=== PATIENT | male | born 1975 | race Caucasian/White ===

== ENCOUNTER 2016-12-10 12:22 | Emergency (ER) | payer BC ==
--- NOTE | 2016-12-10 13:37 | UC ---
Cardiac HPI - HPI Summary HPI Summary: The patient comes in today for: 1. Left sided chest pain: Onset: "started a couple months ago." Palliative/provocative: Rubbing area makes it feel better. Quality: Sharp, and shooting. Region: Left chest. Severity: 7/10 Time: Comes and goes. Lasts a few seconds. Associated symptoms: Rash: This showed up two weeks ago. With the onset of the rash, the pain had the same character, but was more severe. Before the rash the pain was 2/10 but after the rash was 7/10 Fever: None Shortness of breath: He will notice that his ability to exert himself is reduced. He was climbing up a bank along a river (30-40 foot bank) yesterday, and at the top he felt more short of breath than what he would expect. Nausea: None now. Patient states that his sent him in to have a heart attack ruled out. I told him that we are not able to do that here. * - History of Current Complaint Chief Complaint: UCRespiratory Stated Complaint: CHEST PAIN Time Seen by Provider: 12/10/16 13:26 Hx Obtained From: Patient - Allergy/Home Medications Allergies/Adverse Reactions: Allergies Allergy/AdvReac Type Severity Reaction Status Date / Time Penicillins Allergy Intermediate Rash Verified 12/10/16 12:43 PMH/Surg Hx/FS Hx/Imm Hx Previously Healthy: No - Gout Endocrine History Of: Denies: Diabetes, Thyroid Disease, Hyperthyroidism, Hypothyroidism, Dyslipidemia Cardiovascular History Of: Denies: Cardiac Disorders, Hypertension, Pacemaker/ICD, Myocardial Infarction , Congestive Heart Failure, Atrial Fibrillation, Deep Vein Thrombosis, Bleeding Disorders Respiratory History Of: Denies: COPD, Asthma, Bronchitis, Pneumonia, Pulmonary Embolism GI/ History Of: Denies: Gastroesophageal Reflux, Ulcer, Gastrointestinal Bleed, Gall Bladder Disease, Kidney Stones, Diverticulitis, Renal Disease, Urosepsis Neurological History Of: Denies: TIA, CVA, Dementia, Seizures, Migraine Psychological History Of: Denies: Anxiety, Depression, Bipolar Disorder, Schizophrenia, Post Traumatic Stress Disorder Cancer History Of: Denies: Lung Cancer, Colorectal Cancer, Breast Cancer, Prostate Cancer, Cervical Cancer Other History Of: Negative For: HIV, Hepatitis B, Hepatitis C, Anticoagulant Therapy - Surgical History Surgical History: Yes Surgery Procedure, Year, and Place: right kn 2007,. RIGHT knee 02/2014 - Family History Known Family History: Negative: Cardiac Disease, Hypertension, Diabetes - Social History Occupation: Employed Full-time Alcohol Use: Occasionally Substance Use Type: None Smoking Status (MU): Never Smoked Tobacco Amount Used/How Often: 4 cans a week - Immunization History Most Recent Influenza Vaccination: fall 2014 Review of Systems Constitutional: Negative Skin: Rash Eyes: Negative ENT: Negative Respiratory: Negative Cardiovascular: Negative Gastrointestinal: Negative Genitourinary: Negative All Other Systems Reviewed And Are Negative: Yes Physical Exam Triage Information Reviewed: Yes Appearance: Well-Appearing, No Pain Distress, Well-Nourished Vital Signs: Initial Vital Signs Temp 98.5 F 12/10/16 12:30 Vital Signs Reviewed: Yes Eyes: Positive: Conjunctiva Clear. Negative: Discharge ENT: Positive: Hearing grossly normal. Negative: Pharyngeal erythema, Nasal congestion, Nasal drainage, TM bulging, TM dull, TM red, Tonsillar swelling, Tonsillar exudate Dental: Negative: Gross Decay/Caries @, Dental Fracture @ Neck: Positive: Supple, Nontender, No Lymphadenopathy. Negative: Nuchal Rigidity Respiratory: Positive: Lungs clear, No respiratory distress, No accessory muscle use. Negative: Crackles, Wheezing Cardiovascular: Positive: RRR, No Murmur Abdomen Description: Positive: Nontender, No Organomegaly, Soft Musculoskeletal: Positive: Strength Intact, ROM Intact, No Edema Neurological: Positive: Alert, Muscle Tone Normal Psychological: Positive: Age Appropriate Behavior, Consolable Skin: Positive: rashes - The patient had a typical herpes zoster rash of Left T4 front and back.. Negative: breakdown Diagnostics - Laboratory Diagnostic Studies Completed/Ordered: EKG: Rate: 70. Rhythm: sinus. Ectopy: None. Acute changes: None. - Assessment/Plan Course Of Treatment: Patient was told that his history and physical exam suggest chest pain from post herpetic neuralgia related to a shingles outbreak and offered pain medications. He declined. However, he stated that he wanted blood testing to rule out a heart attack even though I told him that his clinical picture and EKG did not suggest it. I told him that if he wanted to do that, he would have to go to the ER which he declined. He said that he would contact his primary care provider about this. - Clinical Impression Provider Diagnoses: post herpetic neuralgia, shingles T4, let dermatome. Discharge - Discharge Plan Condition: Stable Disposition: HOME Patient Education Materials: Miguelito (ED) Referrals: Pee Burks MD [Primary Care Provider] - 1 Week (Please see your primary care provider in a week to see how well you are doing. If you get worse, please be seen sooner in the ER or through us.)
== END 2016-12-10 14:15 | disposition home or self-care (01) ==
LOC: UCEAST 12:22
DX: B02.29 Other postherpetic nervous system involvement (principal); B02.9 Zoster without complications; Z88.0 Allergy status to penicillin
CPT/HCPCS: 93005; 99211; G0463

== ENCOUNTER 2016-12-11 22:24 | Emergency (ER) | payer BC ==
[2016-12-11] MEDS ORDERED: Aspirin Low Dose CHEW TAB* 81 MG PO ONE (23:51)
[2016-12-12 00:55] LABS: Hematocrit 45 % (42-52); Hemoglobin 15.3 g/dl (14.0-18.0); Mean Corpuscular HGB Conc 35 g/dl (31-36); Mean Corpuscular Hemoglobin 28 pg (27-31); Mean Corpuscular Volume 82 fL (80-94); Mean Platelet Volume 9 um3 (7.4-10.4); Red Cell Distribution Width 14 % (10.5-15); White Blood Count 8.1 10^3/ul (3.5-10.8)
[2016-12-12 01:04] LABS: Albumin 4.3 g/dL (3.2-5.2); BUN/Creatinine Ratio 18.6 (8-20); Calcium 9.5 mg/dL (8.6-10.3); EGFR African American 110.8 (>60); EGFR Non-African American 86.2 (>60); Globulin 2.8 g/dL (2-4); Potassium 3.8 mmol/L (3.5-5.0); Total Bilirubin 0.5 mg/dL (0.2-1.0); Total Protein 7.1 g/dL (6.4-8.9)
[2016-12-12 02:16] VITALS: BP 138/82
[2016-12-12] MEDS ORDERED: Ibuprofen TAB* 600 MG PO ONE (02:16)
--- NOTE | 2016-12-12 02:34 | ED ---
Libia Carrington Salem, scribed for Leonard Patel on 12/11/16 at 2353 . HPI Chest Pain - HPI Summary HPI Summary: Patient is a 41 y/o male who presents to the ED with intermittent CP localized on the left side of his chest for 5 to 6 days. Intermittent pain lasts about 15 seconds. Pt reports SOB with exertion, but denies coughing. FHx: CAD on father s side. - History of Current Complaint Chief Complaint: EDGeneral Time Seen by Provider: 12/11/16 23:22 Hx Obtained From: Patient Onset/Duration: Started Days Ago Timing: Intermittent Initial Severity: Moderate Current Severity: Moderate Pain Intensity: 2 Pain Scale Used: 0-10 Numeric Chest Pain Location: Left Anterior Aggravating Factor(s): Nothing Alleviating Factor(s): Nothing Associated Signs and Symptoms: Positive: Shortness of Breath. Negative: Cough - Allergy/Home Medications Allergies/Adverse Reactions: Allergies Allergy/AdvReac Type Severity Reaction Status Date / Time Penicillins Allergy Intermediate Rash Verified 12/10/16 12:43 PMH/Surg Hx/FS Hx/Imm Hx Endocrine/Hematology History: Denies: Hx Anticoagulant Therapy, Hx Diabetes, Hx Thyroid Disease Cardiovascular History: Denies: Hx Congestive Heart Failure, Hx Deep Vein Thrombosis, Hx Hypertension , Hx Myocardial Infarction, Hx Pacemaker/ICD Respiratory History: Denies: Hx Asthma, Hx Chronic Obstructive Pulmonary Disease (COPD), Hx Lung Cancer, Hx Pneumonia, Hx Pulmonary Embolism GI History: Denies: Hx Gall Bladder Disease, Hx Gastrointestinal Bleed, Hx Ulcer, Hx Urosepsis History: Denies: Hx Kidney Stones, Hx Renal Disease Sensory History: Denies: Hx Hearing Aid Neurological History: Denies: Hx Dementia, Hx Migraine, Hx Seizures, Hx Transient Ischemic Attacks (TIA) Psychiatric History: Denies: Hx Anxiety, Hx Depression, Hx Panic Disorder, Hx Schizophrenia, Hx Bipolar Disorder - Surgical History Surgery Procedure, Year, and Place: right kn 2007,. RIGHT knee 02/2014 Infectious Disease History: No Infectious Disease History: Denies: Hx Clostridium Difficile, Hx Hepatitis, Hx Human Immunodeficiency Virus (HIV), Hx of Known/Suspected MRSA, Hx Shingles, Hx Tuberculosis, Hx Known/ Suspected VRE, Hx Known/Suspected VRSA, History Other Infectious Disease, Traveled Outside the [place] in Last 30 Days - Family History Known Family History: Negative: Cardiac Disease, Hypertension, Diabetes - Social History Alcohol Use: Occasionally Substance Use Type: Reports: None Hx Tobacco Use: No Smoking Status (MU): Never Smoked Tobacco Do You Chew or Dip Tobacco: Yes - Occasionally. Amount Used/How Often: 4 cans a week Review of Systems Negative: Fever Positive: Chest Pain - Left side. Positive: Shortness Of Breath - With exertion.. Negative: Cough All Other Systems Reviewed And Are Negative: Yes Physical Exam Triage Information Reviewed: Yes Vital Signs On Initial Exam: Initial Vitals Temp Pulse Resp BP Pulse Ox 98.6 F 66 16 134/63 96 12/11/16 22:25 12/11/16 22:25 12/11/16 22:25 12/11/16 22:25 12/11/16 22:25 Vital Signs Reviewed: Yes Appearance: Positive: Well-Appearing, No Pain Distress Skin: Positive: Warm, Skin Color Reflects Adequate Perfusion, Dry, Other - Rash over left chest. Megalopapilla. Head/Face: Positive: Normal Head/Face Inspection Eyes: Positive: EOMI, TANISHA Neck: Positive: Supple, Nontender Respiratory/Lung Sounds: Positive: Clear to Auscultation, Breath Sounds Present Cardiovascular: Positive: RRR, Pulses are Symmetrical in both Upper and Lower Extremities Abdomen Description: Positive: Nontender, Soft Bowel Sounds: Positive: Present Musculoskeletal: Positive: Normal, Strength/ROM Intact Neurological: Positive: Normal, Sensory/Motor Intact, Alert, Oriented to Person Place, Time Diagnostics - Vital Signs Vital Signs Temp Pulse Resp BP Pulse Ox 12/11/16 22:25 98.6 F 66 16 134/63 96 - Laboratory Result Diagrams: 12/12/16 00:30 12/12/16 00:30 Lab Statement: Any lab studies that have been ordered have been reviewed, and results considered in the medical decision making process. - Radiology CXR Radiology Interpretation Completed By: ED Physician - Negative. - EKG 2225 EKG Interpretation: Sinus rhythm at 66 bpm. No acute chnages. Re-Evaluation - Re-Evaluation First Eval Re-Evaluation Time: 01:58 Comment: Informed pt of plans. He is agreeable. Chest Pain Course/Dx - Course Assessment/Plan: Unlikely ACS. - Diagnoses Provider Diagnoses: Musculoskeletal chest pain, Shingles Discharge - Discharge Plan Condition: Stable Disposition: HOME Prescriptions: Ibuprofen TAB* [Motrin TAB* 600 MG] 600 mg PO Q8H PRN #20 tab PRN Reason: Pain Patient Education Materials: Ibuprofen (By mouth), Chest Pain (ED), Shingles ( ED) Referrals: Pee Burks MD [Primary Care Provider] - Additional Instructions: Follow up with PCP in 3 days. The documentation as recorded by the Libia vergara Salem accurately reflects the service I personally performed and the decisions made by Jorge laird Emmanuel.
--- NOTE | 2016-12-12 07:37 | RAD ---
INDICATION: Chest pain COMPARISON: July 04, 2003 TECHNIQUE: PA and lateral dual-energy views were obtained. FINDINGS: Bones/Soft Tissues: There are no acute bony findings. Cardiomediastinal: The cardiomediastinal silhouette is normal. Lungs: There are no infiltrates. Pleura: There are no pleural effusions. Other: None IMPRESSION: NORMAL CHEST.
== END 2016-12-12 02:35 | disposition home or self-care (01) ==
LOC: ED 22:24
DX: R07.9 Chest pain, unspecified (principal); B02.9 Zoster without complications; R06.02 Shortness of breath
CPT/HCPCS: 36415; 71020; 80053; 83880; 84484; 85025; 93005; 99283; A9270-GY

== ENCOUNTER 2017-05-11 15:57 | Emergency (ER) | payer BC ==
[2017-05-11 17:10] VITALS: BP 121/68
--- NOTE | 2017-05-11 18:47 | UC ---
Elbow Pain - HPI Summary HPI Summary: 41 y/o male presents to the urgent care c/o LF elbow swollen and warm to touch since 05/02/2017. He was out of town and couldn't go to see her PCP. Pt reports he has HX of gout. and had a similar flare up on 01/2017. He was Rx indomethacin and symptoms resolved. Pt denies fever, pain, SOB, chest pain, N/V/ D, insect bite or trauma to the elbow. - History of Current Complaint Hx Obtained From: Patient Onset/Duration: Weeks Severity Initially: Mild Severity Currently: Moderate Pain Intensity: 0 Pain Scale Used: 0-10 Numeric Aggravating Factor(s): Movement Alleviating Factor(s): Rest, Ice Associated Signs And Symptoms: Positive: Swelling <Adriana Acosta - Last Filed: 05/13/17 13:38> <Jolie Bueno - Last Filed: 05/13/17 14:37> - History of Current Complaint Chief Complaint: UCUpperExtremity Stated Complaint: ELBOW PAIN Time Seen by Provider: 05/11/17 18:33 - Allergies/Home Medications Allergies/Adverse Reactions: Allergies Allergy/AdvReac Type Severity Reaction Status Date / Time Penicillins Allergy Intermediate Rash Verified 05/11/17 17:10 PMH/Surg Hx/FS Hx/Imm Hx Previously Healthy: Yes Other Endocrine History: GOUT Other History Of: Negative For: HIV, Hepatitis B, Hepatitis C, Anticoagulant Therapy - Surgical History Surgical History: Yes Surgery Procedure, Year, and Place: right kn 2007,. RIGHT knee 02/2014 - Family History Known Family History: Positive: None Negative: Cardiac Disease, Hypertension, Diabetes - Social History Occupation: Employed Full-time Lives: With Family Alcohol Use: Occasionally Substance Use Type: None Smoking Status (MU): Never Smoked Tobacco Amount Used/How Often: 4 cans a week - Immunization History Most Recent Influenza Vaccination: fall 2014 <Adriana Acosta - Last Filed: 05/13/17 13:38> Review of Systems Constitutional: Negative Skin: Negative Eyes: Negative ENT: Negative Respiratory: Negative Cardiovascular: Negative Gastrointestinal: Negative Genitourinary: Negative Motor: Negative Neurovascular: Negative Musculoskeletal: Other: - Left elbow swollen and warm to touch Neurological: Negative Psychological: Negative All Other Systems Reviewed And Are Negative: Yes <Conor Acostaha - Last Filed: 05/13/17 13:38> Physical Exam Triage Information Reviewed: Yes Appearance: Well-Appearing, No Pain Distress, Well-Nourished Vital Signs: Initial Vital Signs Temp 97.6 F 05/11/17 17:07 Pulse 60 05/11/17 17:07 Resp 16 05/11/17 17:07 BP 121/68 05/11/17 17:07 Pulse Ox 99 05/11/17 17:07 Vital Signs Reviewed: Yes Eye Exam: Normal Eyes: Positive: Conjunctiva Clear - PERRLA, EOMI, fundi groslly normal ENT Exam: Normal ENT: Positive: Normal ENT inspection, Hearing grossly normal, Pharynx normal, TMs normal Dental Exam: Normal Neck exam: Normal Respiratory Exam: Normal Respiratory: Positive: Chest non-tender, Lungs clear, Normal breath sounds Cardiovascular Exam: Normal Cardiovascular: Positive: RRR, No Murmur, Pulses Normal, Brisk Capillary Refill Abdominal Exam: Normal Abdomen Description: Positive: Nontender, No Organomegaly, Soft. Negative: CVA Tenderness (R), CVA Tenderness (L) Bowel Sounds: Positive: Present Musculoskeletal Exam: Normal Musculoskeletal: Positive: Strength Intact - Left elbow with moderate edema, warm to palpation and non tender, no erythema observed. FROM of the LF elbow. No signs trauma. Positive sensation, capillary refill, reflexes and pulses are WNL., ROM Intact, Other: <CarrascoGerryMolinaAdriana - Last Filed: 05/13/17 13:38> Vital Signs: Initial Vital Signs Temp 97.6 F 05/11/17 17:07 Pulse 60 05/11/17 17:07 Resp 16 05/11/17 17:07 BP 121/68 05/11/17 17:07 Pulse Ox 99 05/11/17 17:07 <Jolie Bueno - Last Filed: 05/13/17 14:37> Elbow Pain Course/Dx - Course Course Of Treatment: 41 y/o male presents to the urgent care c/o LF elbow swollen and warm to touch since 05/02/2017. He was out of town and couldn't go to see her PCP. Pt reports he has HX of gout. and had a similar flare up on 2016. He was Rx indomethacin and symptoms resolved. Pt denies fever, pain, SOB , chest pain, N/V/D, insect bite or trauma to the elbow.Hx obtained. PE abnormal findings: Left elbow with moderate edema, warm to palpation and non tender, no erythema observed. FROM of the LF elbow. No signs trauma. Positive sensation, capillary refill, reflexes and pulses are WNL. Pt Rx Indometacin Po and advised to decrease ETOH comsumption, seafoot and meats in his diet and f/u with his PCP in 2-3 days for further evaluation and treatment. Pt understood and agreed and left the clinic ambulating. - Differential Dx/Diagnosis Differential Diagnosis/HQI/PQRI: Bursitis, Cellulitis, Contusion, Infection, Sprain, Strain, Tendonitis, Other - Gout, RA Provider Diagnoses: 1- Acute exacerbation of Gout <Adriana Acosta - Last Filed: 05/13/17 13:38> Discharge <Adriana Acosta - Last Filed: 05/13/17 13:38> <Jolie Bueno - Last Filed: 05/13/17 14:37> - Discharge Plan Condition: Stable Disposition: HOME Prescriptions: Indomethacin CAP* [Indocin CAP*] 50 mg PO TID PRN #21 cap PRN Reason: Pain Patient Education Materials: Gout (ED) Referrals: Pee Burks MD [Primary Care Provider] - 2 Days Additional Instructions: Please take medication as directed for flare up of your gout. if pain and fever develops, please go immediate to the ER for further treatment. Otherwise f /u with your PCP in 2-3 days for further management in your gout. E Attestation Statement User Type: Provider - I was available for consult. This patient was seen by the LEONIE. The patient was not presented to, seen by, or examined by me. -Christal <Jolie Bueno - Last Filed: 05/13/17 14:37>
== END 2017-05-11 19:01 | disposition home or self-care (01) ==
LOC: UCEAST 15:57
DX: M10.022 Idiopathic gout, left elbow (principal); Z88.0 Allergy status to penicillin; F17.220 Nicotine dependence, chewing tobacco, uncomplicated
CPT/HCPCS: 99211; G0463

== ENCOUNTER 2017-06-07 09:11 | Emergency (ER) | payer BC ==
[2017-06-07 09:37] VITALS: BP 153/72
--- NOTE | 2017-06-07 09:42 | UC ---
Lower Extremity/Ankle HPI - HPI Summary HPI Summary: 41 YEAR OLD MALE PRESENTS WITH COMPLAINS OF LEFT FOOT PAIN AFTER JUMPING OUT OF A TREE. - History of Current Complaint Chief Complaint: UCLowerExtremity Stated Complaint: FOOT INJURY Time Seen by Provider: 06/07/17 09:42 Hx Obtained From: Patient Onset/Duration: Sudden Onset, Lasting Hours Severity Currently: Moderate Pain Scale Used: 0-10 Numeric - 8 Aggravating Factor(s): Standing, Ambulation Alleviating Factor(s): Rest, Elevation - Allergies/Home Medications Allergies/Adverse Reactions: Allergies Allergy/AdvReac Type Severity Reaction Status Date / Time Penicillins Allergy Intermediate Rash Verified 05/11/17 17:10 PMH/Surg Hx/FS Hx/Imm Hx Previously Healthy: Yes Other History Of: Negative For: HIV, Hepatitis B, Hepatitis C, Anticoagulant Therapy - Surgical History Surgical History: Yes Surgery Procedure, Year, and Place: right kn 2007,. RIGHT knee 02/2014 - Family History Known Family History: Positive: None Negative: Cardiac Disease, Hypertension, Diabetes - Social History Alcohol Use: Occasionally Substance Use Type: None Smoking Status (MU): Never Smoked Tobacco Type: Smokeless Tobacco Amount Used/How Often: 4 cans a week - Immunization History Most Recent Influenza Vaccination: fall 2014 Review of Systems Constitutional: Negative Skin: Negative Eyes: Negative ENT: Negative Respiratory: Negative Cardiovascular: Negative Gastrointestinal: Negative Genitourinary: Negative Motor: Negative Neurovascular: Negative Musculoskeletal: Other: - LEFT FOOT PAIN Neurological: Negative Psychological: Negative All Other Systems Reviewed And Are Negative: Yes Physical Exam Triage Information Reviewed: Yes Vital Signs: Initial Vital Signs Temp 36.8 C 06/07/17 09:33 Pulse 69 06/07/17 09:33 Resp 18 06/07/17 09:33 BP 153/72 06/07/17 09:33 Pulse Ox 98 06/07/17 09:33 Eye Exam: Normal ENT Exam: Normal Dental Exam: Normal Neck exam: Normal Neck: Positive: 1 Respiratory Exam: Normal Cardiovascular Exam: Normal Abdominal Exam: Normal Musculoskeletal: Positive: Other: - LEFT FOOT PAIN Neurological Exam: Normal Psychological Exam: Normal Skin Exam: Normal Lower Extremity Course/Dx - Differential Dx/Diagnosis Provider Diagnoses: LEFT FOOT PAIN Discharge - Discharge Plan Condition: Good Disposition: HOME Prescriptions: Methylprednisolone [Medrol Dosepak 4 MG*] 4 mg PO .SEE GUS INSTRUCTION #21 tab Patient Education Materials: Foot Contusion (ED), Foot Sprain (ED) Referrals: Pee Burks MD [Primary Care Provider] -
--- NOTE | 2017-06-07 10:18 | RAD ---
HISTORY: Fall, foot pain COMPARISONS: None VIEWS: 3, Frontal, lateral, and oblique views of the left foot FINDINGS: BONE DENSITY: Normal. BONES: There is an osteochondral defect along the articular surface of the head of the second metatarsal. JOINTS: There is mild osteoarthritis of the midfoot and first MTP joint. ALIGNMENT: There is no dislocation. SOFT TISSUES: Unremarkable. OTHER FINDINGS: None. IMPRESSION: 1. 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 2. MILD OSTEOARTHRITIS. 3. NO ACUTE OSSEOUS INJURY. IF SYMPTOMS PERSIST, RECOMMEND REPEAT IMAGING
--- NOTE | 2017-06-07 10:19 | RAD ---
HISTORY: Dorsal foot pain, trauma COMPARISONS: None VIEWS: 3, Frontal, lateral, and oblique views of the left ankle FINDINGS: BONE DENSITY: Normal. BONES: There is no displaced fracture. JOINTS: There is mild osteoarthritis of the midfoot ALIGNMENT: There is no dislocation. SOFT TISSUES: Unremarkable. OTHER FINDINGS: None. IMPRESSION: NO ACUTE OSSEOUS INJURY. IF SYMPTOMS PERSIST, RECOMMEND REPEAT IMAGING.
== END 2017-06-07 10:32 | disposition home or self-care (01) ==
LOC: UCEAST 09:11
DX: M79.672 Pain in left foot (principal); Z88.0 Allergy status to penicillin
CPT/HCPCS: 99211; G0463

== ENCOUNTER 2018-08-13 09:25 | Emergency (ER) | payer BC ==
--- NOTE | 2018-08-13 09:29 | UC ---
Back Pain HPI - HPI Summary HPI Summary: 43 yo male presents with left sided lower back pain. He tells me that last night he was at a [employer] with a friend and they were playfully wrestling when pt felt a pull in his lower back. This morning he woke up and his back was stiff, tight, and painful to bend/twist. He has not taken anything for the discomfort. Denies radiation of pain, numbness, tingling, saddle anesthesia, or loss of bowel/bladder control. - History of Current Complaint Stated Complaint: BACK PAIN Time Seen by Provider: 08/13/18 09:28 Hx Obtained From: Patient Timing: Constant Severity Initially: Severe Severity Currently: Severe Pain Intensity: 10 Pain Scale Used: 0-10 Numeric - Allergies/Home Medications Allergies/Adverse Reactions: Allergies Allergy/AdvReac Type Severity Reaction Status Date / Time Penicillins Allergy Rash Verified 08/13/18 09:39 PMH/Surg Hx/FS Hx/Imm Hx - Additional Past Medical History Additional PMH: Gout Other History Of: Negative For: HIV, Hepatitis B, Hepatitis C, Anticoagulant Therapy - Surgical History Surgical History: Yes Surgery Procedure, Year, and Place: right kn 2007,. RIGHT knee 02/2014 - Family History Known Family History: Positive: None Negative: Cardiac Disease, Hypertension, Diabetes - Social History Occupation: Employed Full-time Lives: With Family Alcohol Use: Occasionally Substance Use Type: None Smoking Status (MU): Never Smoked Tobacco Type: Smokeless Tobacco Amount Used/How Often: 4 cans a week - Immunization History Most Recent Influenza Vaccination: fall 2014 Review of Systems Constitutional: Negative Skin: Negative Respiratory: Negative Cardiovascular: Negative Gastrointestinal: Negative Genitourinary: Negative Neurovascular: Negative Musculoskeletal: Other: - LBP Neurological: Negative Psychological: Negative All Other Systems Reviewed And Are Negative: Yes Physical Exam - Summary Physical Exam Summary: GENERAL: NAD. WDWN. No pain distress. SKIN: No rashes, sores, lesions, or open wounds. NECK: Supple. FROM. Nontender. No lymphadenopathy. CHEST: CTAB. No r/r/w. No accessory muscle use. Breathing comfortably and in no distress. CV: RRR. Without m/r/g. Pulses intact. Cap refill <2seconds MSK: TTP over left lumbar paraspinal muscles. Pain with flexion and extension of spine. Positive SLR on left for low back pain without radiation. Strength 5/ 5 B/L LEs including dorsiflexion and plantar flexion. FROM B/L LEs. No edema. NEURO: Alert. Sensations intact B/L LEs L3-S1. PSYCH: Age appropriate behavior. Triage Information Reviewed: Yes Vital Signs: Vital Signs: Temp Pulse Resp BP Pulse Ox 97.5 F 79 14 146/81 97 08/13/18 09:35 08/13/18 09:35 08/13/18 09:35 08/13/18 09:35 08/13/18 09:35 Vital Signs Reviewed: Yes Back Pain Course/Dx - Course Course Of Treatment: Suspect muscle strain/spasm. In the clinic pt was given Toradol 60mg IM. Will rx for Naproxen and flexeril and have him f/u if his pain does not improve or if he develops new symptoms. - Differential Dx/Diagnosis Provider Diagnoses: Low back spasm Discharge - Sign-Out/Discharge Documenting (check all that apply): Patient Departure All imaging exams completed and their final reports reviewed: No Studies - Discharge Plan Condition: Stable Disposition: HOME Prescriptions: Cyclobenzaprine TAB* [Flexeril 10 MG TAB*] 10 mg PO BID PRN #14 tab PRN Reason: Pain Naproxen [Naproxen 500 mg tab] 500 mg PO BID PRN #30 tablet PRN Reason: Pain Patient Education Materials: Muscle Spasm (ED), Lower Back Exercises (ED) Referrals: Pee Burks MD [Primary Care Provider] - Additional Instructions: If you develop a fever, shortness of breath, chest pain, new or worsening symptoms - please call your PCP or go to the ED. Your blood pressure was high at todays visit. Please see your primary provider within 4 weeks for recheck and re-evaluation. 1) Do not take ibuprofen/advil/aleve in addition to the Naproxen as these medications are similar and may interact 2) Rest and apply heat your to lower back to help relax the muscle - Billing Disposition and Condition Condition: STABLE Disposition: Home
[2018-08-13 09:39] VITALS: BP 146/81
[2018-08-13] MEDS ORDERED: Ketorolac INJ* 60 MG/2 ML VIAL IM ONE (09:46)
== END 2018-08-13 10:05 | disposition home or self-care (01) ==
LOC: UCEAST 09:25
DX: M62.830 Muscle spasm of back (principal); M54.5 Low back pain; Z88.0 Allergy status to penicillin
CPT/HCPCS: 96372; 99212; G0463; J1885

== ENCOUNTER 2018-08-23 08:44 | Emergency (ER) | payer BC ==
[2018-08-23 08:53] VITALS: BP 155/85
--- NOTE | 2018-08-23 09:17 | UC ---
General HPI - HPI Summary HPI Summary: Mr. Murguia comes in complaining of a spinning sensation when he gets up from lying down. It lasts a few seconds, less than a minute and then he is fine. It has been happening for a couple of days now but was worse last night. He denies any upper respiratory tract symptoms or headache. His daughter has a viral infection is little hoarse but is otherwise fine. He injured his back and was taking some Flexeril for a few days last week intermittently he injured his elbow and took them again on Wednesday but has not taken them again since Wednesday. - History of Current Complaint Chief Complaint: UCDizziness Stated Complaint: DIZZINESS Time Seen by Provider: 08/23/18 08:58 Pain Intensity: 0 - Allergy/Home Medications Allergies/Adverse Reactions: Allergies Allergy/AdvReac Type Severity Reaction Status Date / Time Penicillins Allergy Rash Verified 08/23/18 08:53 PMH/Surg Hx/FS Hx/Imm Hx Previously Healthy: Yes Other History Of: Negative For: HIV, Hepatitis B, Hepatitis C, Anticoagulant Therapy - Surgical History Surgical History: Yes Surgery Procedure, Year, and Place: right kn 2007,. RIGHT knee 02/2014 - Family History Known Family History: Positive: None Negative: Cardiac Disease, Hypertension, Diabetes - Social History Alcohol Use: Occasionally Substance Use Type: None Smoking Status (MU): Never Smoked Tobacco Type: Smokeless Tobacco Amount Used/How Often: 4 cans a week Length of Time of Smoking/Using Tobacco: since age 20 on/off - Immunization History Most Recent Influenza Vaccination: fall 2014 Review of Systems Constitutional: Negative Skin: Negative Eyes: Negative ENT: Negative Respiratory: Negative Musculoskeletal: Other: - right elbow is better now as is his back Neurological: Negative All Other Systems Reviewed And Are Negative: No Physical Exam - Summary Physical Exam Summary: He was noted to have no nystagmus and I cannot elicit any with Jesup-Hallpike maneuver to either side. Triage Information Reviewed: Yes Appearance: Well-Appearing, No Pain Distress, Well-Nourished Vital Signs: Initial Vital Signs Temp 97.7 F 08/23/18 08:49 Pulse 65 08/23/18 08:49 Resp 18 08/23/18 08:49 BP 155/85 08/23/18 08:49 Pulse Ox 98 08/23/18 08:49 Vital Signs Reviewed: Yes Eyes: Positive: Conjunctiva Clear ENT Exam: Normal ENT: Positive: Normal ENT inspection - TMs obscured by cerumen Neck exam: Normal Neck: Positive: Supple Respiratory Exam: Normal Cardiovascular Exam: Normal Neurological Exam: Normal Course/Dx - Course Course Of Treatment: Mr. Murguia is describing short periods of vertigo with standing. I cannot elicit any nystagmus and he has no tenderness. These episodes are brief and self-limited. I recommended a prescription for meclizine in case they worsen. They are likely viral from a labyrinthitis but he has no other symptoms and I recommended close follow-up. - Differential Dx - Multi-Symptom Provider Diagnoses: Labrynthitis Discharge - Sign-Out/Discharge Documenting (check all that apply): Patient Departure All imaging exams completed and their final reports reviewed: Yes - Discharge Plan Condition: Stable Disposition: HOME Referrals: Pee Burks MD [Primary Care Provider] - - Billing Disposition and Condition Condition: STABLE Disposition: Home
== END 2018-08-23 09:43 | disposition home or self-care (01) ==
LOC: UCEAST 08:44
DX: H83.09 Labyrinthitis, unspecified ear (principal); Z88.0 Allergy status to penicillin
CPT/HCPCS: 99212; G0463